=== PATIENT | female | born 1975 | race Two or more races ===

== ENCOUNTER 2019-08-06 10:45 | Outpatient (CLI) | payer MEDICAID ==
[~2019-08-06] VITALS: Ht 147.3 cm; Wt 75.7 kg
[2019-08-06] MEDS ORDERED: ACETAZOLAMIDE250 MG ORAL (13:41)
[2019-08-06] MEDS ORDERED: PRILOSEC OTC20 MG ORAL (13:41)
[2019-08-06] MEDS ORDERED: ZYRTEC10 MG ORAL (13:41)
--- NOTE | 2019-08-06 16:00 | Consultation ---
DATE OF CONSULTATION: 08/06/2019 CONSULTING PHYSICIAN: Earl Espitia MD. CHIEF COMPLAINT: Rectal bleeding, abdominal pain. HISTORY OF PRESENT ILLNESS: This is a 44-year-old female with complaint of abdominal pain for years, bilateral lower cramps, rectal bleeding. No constipation. Some nausea. No vomiting. Had an endoscopy done in this year, was found to have a hiatal hernia, gastritis. Currently on PPI 20 mg daily without any significant improvement in abdominal pain, was referred for possible colonoscopy. PAST MEDICAL HISTORY: 1. Hemorrhoids. 2. Gastritis. 3. Hiatal hernia. 4. Chronic headache. PAST SURGICAL HISTORY: None. MEDICATIONS: Omeprazole. FAMILY HISTORY: No family history of GI malignancies. SOCIAL HISTORY: Patient denies any tobacco, alcohol, or drug abuse. ALLERGIES: No known allergies. REVIEW OF SYSTEMS: Positive for abdominal pain, cramps, rectal bleeding, bloating, gas. PHYSICAL EXAMINATION: GENERAL: Well-developed female, in no acute distress. HEENT: Normocephalic, atraumatic. Sclerae anicteric. NECK: Supple. No evidence of obvious lymphadenopathy. CARDIOVASCULAR: Regular rate and rhythm. Plus S1-S2. LUNGS: Clear to auscultation bilaterally. ABDOMEN: Positive bowel sounds. Soft. Minimal tenderness to palpation in bilateral lower quadrants. No rebound. No peritoneal sign. EXTREMITIES: No cyanosis, no clubbing, no edema. ASSESSMENT: This is a 44-year-old female with. 1. Rectal bleeding. 2. History of hemorrhoids. 3. Gastritis. 4. Hiatal hernia. 5. Gas and bloating and IBS. PLAN: Patient would need a colonoscopy given rectal bleeding, not responding to hemorrhoidal treatment. Procedure was informed to the patient and patient agreed. We will try to get authorization and schedule her. In terms of GERD, 20 mg of the omeprazole is not holding it up. We are going to increase the dose to 40 daily. Patient also was given sample and was told to buy it and try it for 2 months to see if it improves her gas and bloating symptoms. Earl Espitia M.D. DR: FERNANDO JOB#: [id number] CC:
== END 2019-08-06 14:49 | disposition home or self-care (01) ==
LOC: PAN 10:45
DX: K62.5 Hemorrhage of anus and rectum (principal); R10.9 Unspecified abdominal pain; Z79.899 Other long term (current) drug therapy; R14.0 Abdominal distension (gaseous); K29.70 Gastritis, unspecified, without bleeding; K44.9 Diaphragmatic hernia without obstruction or gangrene; K21.9 Gastro-esophageal reflux disease without esophagitis
CPT/HCPCS: G0463

== ENCOUNTER 2019-09-25 13:16 | Outpatient (CLI) | payer MEDICAID ==
[~2019-09-25 13:16] MED LIST: ACETAZOLAMIDE250 MG ORAL; PRILOSEC OTC20 MG ORAL; ZYRTEC10 MG ORAL
[2019-09-25 15:22] VITALS: BP 106/64
--- NOTE | 2019-09-25 16:15 | Progress Note ---
DATE: 09/25/2019 SUBJECTIVE: Here post colonoscopy. PHYSICAL EXAMINATION: VITAL SIGNS: Temperature 98.6, blood pressure 106/64, pulse 69, respirations 20. HEENT: Normocephalic and atraumatic. Sclerae anicteric. NECK: Supple. No evidence of obvious lymphadenopathy. CARDIOVASCULAR: Regular rate and rhythm. Plus S1, S2. LUNGS: Clear to auscultation bilaterally. ABDOMEN: Positive bowel sounds. Soft and nontender. No rebound. No guarding. No peritoneal sign. EXTREMITIES: No cyanosis. No clubbing. No edema. ASSESSMENT AND PLAN: This is a 44-year-old female with rectal bleeding, status post colonoscopy. She had 1 polyp, which was tubular adenoma. Also she has internal hemorrhoids. Patient was given a suppository, Anusol-HC to be used twice a day with sitz bath. Return to clinic p.r.n. if there is no improvement. Repeat colonoscopy in 5 years. Earl Espitia M.D. DR: FERNANDO JOB#: [id number] CC:
== END 2019-09-25 15:56 | disposition home or self-care (01) ==
LOC: PAN 13:16
DX: K62.5 Hemorrhage of anus and rectum (principal); K64.8 Other hemorrhoids
CPT/HCPCS: 99212